=== PATIENT | female | born 1965 | race Two or more races ===

== ENCOUNTER 2022-04-19 13:01 | Outpatient (CLI) | payer OTHER | END 2022-04-19 13:02 | disposition home or self-care (01) | LOC: MAMO-SONO 13:01 | DX: R10.2 Pelvic and perineal pain (principal); N60.11 Diffuse cystic mastopathy of right breast; N60.12 Diffuse cystic mastopathy of left breast ==

== ENCOUNTER → 2022-05-04 10:56 | Outpatient (CLI) | payer OTHER | END | disposition home or self-care (01) | LOC: NUCLEAR 05-03 10:00 | PROVIDERS: ATTEND Internal Medicine | DX: I10 Essential (primary) hypertension (principal) ==

== ENCOUNTER 2022-05-13 07:10 | Outpatient (CLI) | payer OTHER | END 2022-05-13 07:11 | disposition home or self-care (01) | LOC: LAB 07:10 | PROVIDERS: ATTEND Internal Medicine | DX: D50.9 Iron deficiency anemia, unspecified (principal); E11.9 Type 2 diabetes mellitus without complications; E78.2 Mixed hyperlipidemia; E78.5 Hyperlipidemia, unspecified; E55.9 Vitamin D deficiency, unspecified; N39.0 Urinary tract infection, site not specified; K92.1 Melena ==

== ENCOUNTER 2022-06-29 16:01 | Outpatient (CLI) | payer OTHER | END 2022-06-29 16:17 | disposition home or self-care (01) | LOC: RAD 16:01 | PROVIDERS: ATTEND Internal Medicine | DX: J44.9 Chronic obstructive pulmonary disease, unspecified (principal) ==

== ENCOUNTER 2023-04-16 06:42 | Outpatient (CLI) | payer OTHER | END 2023-04-16 06:44 | disposition home or self-care (01) | LOC: LAB 06:42 | PROVIDERS: ATTEND Internal Medicine | DX: E78.2 Mixed hyperlipidemia (principal); E11.9 Type 2 diabetes mellitus without complications; K85.90 Acute pancreatitis without necrosis or infection, unspecified ==

== ENCOUNTER 2023-04-18 12:52 | Outpatient (CLI) | payer OTHER | END 2023-04-18 12:54 | disposition home or self-care (01) | LOC: NUCLEAR 12:52 | PROVIDERS: ATTEND Internal Medicine | DX: Z13.820 Encounter for screening for osteoporosis (principal) ==

== ENCOUNTER 2023-04-23 10:12 | Outpatient (CLI) | payer OTHER | END 2023-04-23 10:28 | disposition home or self-care (01) | LOC: MAMO-SONO 10:12 | PROVIDERS: ATTEND Obstetrics & Gynecology | DX: Z12.31 Encounter for screening mammogram for malignant neoplasm of breast (principal); N60.11 Diffuse cystic mastopathy of right breast; N60.12 Diffuse cystic mastopathy of left breast; R10.2 Pelvic and perineal pain; D25.1 Intramural leiomyoma of uterus ==